=== PATIENT | female | born 1975 | race Caucasian/White ===

== ENCOUNTER → 2016-08-20 | Outpatient (CLI) | payer OTHER ==
[~2016-08-20] MED LIST: CLIN300C2 PO; MULT-506 PO
[2016-08-20 09:33] LABS: BASO % 0.4 %; BASO ABS # 0.02 K/uL (0-0.2); COMPLETE YES; EOS % 4.1 %; HEMATOCRIT 40.1 % (37-47); LYMPH % 41.5 %; LYMPH ABS # 2.25 K/uL (1.2-3.4); MEAN CELL VOLUME 88.3 fL (80-100); MEAN CORPUSCULAR HEMOGLOBIN 29.3 pg (25-34); MEAN CORPUSCULAR HGB CONC 33.2 g/dl (32-36); MEAN PLATELET VOLUME 9.9 fL (7.4-10.4); MONO % 7.7 %; NEUT % 46.3 %; PLATELET COUNT 245 K/uL (130-400); RED BLOOD COUNT 4.54 M/uL (4.2-5.4); WHITE BLOOD COUNT 5.42 K/uL (4.8-10.8)
[2016-08-20 09:54] LABS: ALT/SGPT 23 U/L (12-78); AST/SGOT 12 U/L (15-37); BLOOD UREA NITROGEN 12 mg/dl (7-18); BUN/CREATININE RATIO 15.7 (10-20); CALCIUM 8.7 mg/dl (8.5-10.1); CARBON DIOXIDE 26 mmol/L (21-32); CHLORIDE 110 mmol/L (98-107); CHOLESTEROL 172 mg/dl (0-200); CREATININE 0.79 mg/dl (0.60-1.20); GLUCOSE 92 mg/dl (70-99); POTASSIUM 4.3 mmol/L (3.5-5.1); SODIUM 144 mmol/L (136-145)
[2016-08-20 10:04] LABS: ALKALINE PHOSPHATASE 59 U/L (45-117); CHOLESTEROL/HDL RATIO 3.7; HDL CHOLESTEROL 46 mg/dl; LDL CHOLESTEROL CALCULATED 100 mg/dl; TRIGLYCERIDES 130 mg/dl (0-150); VERY LOW DENSITY LIPOPROT CALC 26 mg/dl
[2016-08-20 10:09] LABS: ESTIMATED AVERAGE GLUCOSE 114 mg/dl; HA1C FLAG Normal (Normal)
== END | disposition home or self-care (01) ==
LOC: C.LAB1850 08:33
PROVIDERS: ATTEND Nurse Practitioner Adult Health
DX: E66.01 Morbid (severe) obesity due to excess calories (principal)

== ENCOUNTER → 2017-01-10 | Outpatient (CLI) | payer OTHER ==
[~2017-01-10] MED LIST changes: +IBUP-1050 PO
[2017-01-12 01:12] LABS: CHLAMYDIA TRACH RNA*** NOT DETECTED (NOT DETECTED); GC (NEIS GONORRHOEAE)RNA** NOT DETECTED (NOT DETECTED)
== END | disposition home or self-care (01) ==
LOC: C.LABSPEC 11:07
PROVIDERS: ATTEND Nurse Practitioner Adult Health
DX: Z20.2 Contact with and (suspected) exposure to infections with a predominantly sexual mode of transmission (principal)

== ENCOUNTER → 2017-01-10 | Outpatient (CLI) | payer OTHER | END | disposition home or self-care (01) | LOC: C.PAPS 13:45 | PROVIDERS: ATTEND Nurse Practitioner Adult Health | DX: Z00.00 Encounter for general adult medical examination without abnormal findings (principal) ==

== ENCOUNTER 2017-02-28 11:06 | Emergency (ER) | payer OTHER ==
[~2017-02-28] VITALS: Ht 170.2 cm; Wt 157.0 kg
[~2017-02-28 11:06] MED LIST changes: -CLIN300C2 PO; -IBUP-1050 PO
[2017-02-28 11:08] VITALS: TEMP 36.6; Ht 170.2 cm; Wt 157.0 kg
[2017-02-28] MEDS ORDERED: KETOROLAC TROMETHAMINE 30 MG/ML VIAL IV STA (11:38)
[2017-02-28] MEDS ORDERED: CLINDAMYCIN 600 MG/54 ML D5W IV ONE (11:45)
--- NOTE | 2017-02-28 11:47 | EMERGENCY ROOM VISIT NOTE ---
History First contact with patient: 11:28 Chief Complaint: DENTAL PAIN Stated Complaint: TOOTHACHE,SWOLLEN LEFT CHEEK Nursing Triage Summary: Pt states "I have an abcessed tooth and they can't get me in". Left upper. Face is swollen. Pain began Tuesday, Swelling started Tuesday, but got worse. History of Present Illness The patient is a 41 year old female who presents to the Emergency Room with complaints of dental pain and facial swelling. The patient states that 2 months ago her left upper tooth broke and she had an infection and saw her dentist. They start her on clindamycin and it seemed to get better. She states that she developed pain 3 days ago and swelling 2 days ago. She states it is getting worse. She states she contacted her dentist but they cannot get her in. She denies any fevers. She denies any discharge. She denies any pain in her chest or trouble breathing. She rates her discomfort a 4/10. Review of Systems A 10 system review of systems was completed with positives and pertinent negatives listed in the HPI. Past Medical/Surgical History Medical Problems: (1) Bronchitis (2) Gall bladder disease (3) Pneumonia Surgical Problems: (1) History of cholecystectomy (2) Previous section Family History FH: HTN (hypertension) FH: cancer FH: gallbladder disease FH: lung disease FH: seizures Heart disease Social History Smoking Status: Current Every Day Smoker Alcohol Use: occasionally Marital Status: Housing Status: lives with significant other Occupation Status: employed Current/Historical Medications Scheduled Clindamycin Hcl (Cleocin), 300 MG PO QID Multivitamin (Multivitamin), 1 TAB PO DAILY Physical Exam Vital Signs Date Time Temp Pulse Resp B/P (MAP) Pulse Ox O2 Delivery O2 Flow Rate FiO2 02/28/17 13:13 72 20 157/102 99 02/28/17 12:34 67 20 146/97 99 Room Air 02/28/17 11:08 36.6 74 17 141/87 99 Room Air Physical Exam VITALS: Vitals are noted on the nurse's note and reviewed by myself. Vital signs stable. The patient is afebrile. GENERAL: This is a 41-year-old female, in no acute distress, nondiaphoretic, well-developed well-nourished. SKIN: The skin was without rashes, erythema or bruising. There is no tenting of the skin. Capillary reflex less than 2 seconds. HEAD: Normocephalic atraumatic. EARS: External auditory canals clear, tympanic membranes pearly jolly without erythema or effusion bilaterally. EYES: Pupils equal round and reactive to light and accommodation. Conjunctivae without injection, sclerae without icterus. Extraocular movements intact. NOSE: Patent, turbinates without inflammation or discharge. No sinus tenderness. MOUTH: Mucous membranes moist. Tonsils are not enlarged. Pharynx without erythema or exudate. Uvula midline. Airway patent. Tongue does not deviate. There is facial swelling noted particularly over the lower jaw on the left. There is tenderness to palpation over the area of swelling. The patient removed her partial upper. The gum is irritated but there is no obvious abscess. There is no swelling beneath the tongue. NECK: Supple without nuchal rigidity. No lymphadenopathy. No thyromegaly. Cervical spine is nontender. No JVD. HEART: Regular rate and rhythm without murmurs gallops or rubs. LUNGS: Clear to auscultation bilaterally without wheezes, rales or rhonchi. No retractions or accessory muscle use. MUSCULOSKELETAL: No muscle atrophy, erythema, or edema noted. Full range of motion in all extremities. Strength 5/5 throughout. NEURO: Patient was alert and oriented to person place and time. No focal neurological deficits. Medical Decision & Procedures Laboratory Results 02/28/17 11:59 Red Blood Count 4.34, Mean Corpuscular Volume 88.7, Mean Corpuscular Hemoglobin 30.0, Mean Corpuscular Hemoglobin Concent 33.8, Mean Platelet Volume 9.3, Neutrophils (%) (Auto) 51.0, Lymphocytes (%) (Auto) 37.3, Monocytes (%) (Auto) 7.5, Eosinophils (%) (Auto) 3.6, Basophils (%) (Auto) 0.4, Neutrophils # (Auto) 2.86, Lymphocytes # (Auto) 2.09, Monocytes # (Auto) 0.42, Eosinophils # (Auto) 0.20, Basophils # (Auto) 0.02 02/28/17 11:59 Test 02/28/17 11:59 White Blood Count 5.60 K/uL (4.8-10.8) Red Blood Count 4.34 M/uL (4.2-5.4) Hemoglobin 13.0 g/dL (12.0-16.0) Hematocrit 38.5 % (37-47) Mean Corpuscular Volume 88.7 fL (80-100) Mean Corpuscular Hemoglobin 30.0 pg (25-34) Mean Corpuscular Hemoglobin Concent 33.8 g/dl (32-36) Platelet Count 248 K/uL (130-400) Mean Platelet Volume 9.3 fL (7.4-10.4) Neutrophils (%) (Auto) 51.0 % Lymphocytes (%) (Auto) 37.3 % Monocytes (%) (Auto) 7.5 % Eosinophils (%) (Auto) 3.6 % Basophils (%) (Auto) 0.4 % Neutrophils # (Auto) 2.86 K/uL (1.4-6.5) Lymphocytes # (Auto) 2.09 K/uL (1.2-3.4) Monocytes # (Auto) 0.42 K/uL (0.11-0.59) Eosinophils # (Auto) 0.20 K/uL (0-0.5) Basophils # (Auto) 0.02 K/uL (0-0.2) RDW Standard Deviation 47.1 fL (36.4-46.3) RDW Coefficient of Variation 14.4 % (11.5-14.5) Immature Granulocyte % (Auto) 0.2 % Immature Granulocyte # (Auto) 0.01 K/uL (0.00-0.02) Anion Gap 5.0 mmol/L (3-11) Est Creatinine Clear Calc Drug Dose 135.8 ml/min Estimated GFR () 98.0 Estimated GFR (Non- 84.5 BUN/Creatinine Ratio 12.8 (10-20) Calcium Level 8.6 mg/dl (8.5-10.1) Total Bilirubin 0.4 mg/dl (0.2-1) Aspartate Amino Transf (AST/SGOT) 10 U/L (15-37) Alanine Aminotransferase (ALT/SGPT) 20 U/L (12-78) Alkaline Phosphatase 70 U/L (45-117) Total Protein 6.9 gm/dl (6.4-8.2) Albumin 3.3 gm/dl (3.4-5.0) Globulin 3.6 gm/dl (2.5-4.0) Albumin/Globulin Ratio 0.9 (0.9-2) Medications Administered Medications (Trade) Dose Ordered Sig/Deandra Route Start Time Stop Time Status Last Admin Dose Admin Clindamycin Phosphate (Cleocin 600mg/ 54ml D5W) 600 mg ONE ONCE IV 02/28/17 11:45 02/28/17 11:46 DC 02/28/17 12:25 600 MG Ketorolac Tromethamine (Toradol Inj) 30 mg NOW STAT IV 02/28/17 11:38 02/28/17 11:39 DC 02/28/17 12:30 30 MG ED Course The patient was seen and examined. Previous visits were reviewed. The patient does not have a fever or leukocytosis. She does have some facial swelling on examination. There is no swelling of the neck are beneath the tongue. I do not suspect abscess or Connor angina at this time. The patient is allergic to penicillin. She was given 600 mg IV clindamycin and 30 mg IV Toradol. She stated she was feeling significantly improved. The patient stated she would contact her dentist for definitive management. She declined any pain medication. She should return with any worsening swelling, swelling beneath the tongue, fevers or generalized worsening symptoms. Medical Decision The differential diagnosis includes dental abscess, facial cellulitis, sialadenitis, viral illness, among others Medication Reconcilliation Current Medication List: was personally reviewed by me Blood Pressure Screening Patient's blood pressure: Elevated blood pressure Blood pressure disposition: Elevated BP felt to be situational Impression Primary Impression: Pain, dental Departure Information Dispostion Home / Self-Care Condition GOOD Prescriptions Clindamycin Hcl (CLEOCIN) 300 Mg Cap 300 MG PO QID for 10 Days, #40 CAP Prov: Giselle Byrd PA-C 02/28/17 Referrals Eda Mcconnell C.R.N.P. (PCP) Patient Instructions My [facility] Additional Instructions Clindamycin as prescribed, until finished Motrin 600 mg every 6-8 hours or moderate pain Contact your dentist to schedule a follow-up appointment for further evaluation and management Return to the emergency Department with any fevers, worsening swelling, worsening pain
[2017-02-28 12:25] LABS: BASO % 0.4 %; BASO ABS # 0.02 K/uL (0-0.2); COMPLETE YES; EOS % 3.6 %; HEMATOCRIT 38.5 % (37-47); IG% 0.2 %; LYMPH % 37.3 %; LYMPH ABS # 2.09 K/uL (1.2-3.4); MEAN CELL VOLUME 88.7 fL (80-100); MEAN CORPUSCULAR HGB CONC 33.8 g/dl (32-36); MEAN PLATELET VOLUME 9.3 fL (7.4-10.4); MONO % 7.5 %; PLATELET COUNT 248 K/uL (130-400); RED BLOOD COUNT 4.34 M/uL (4.2-5.4)
[2017-02-28 12:51] LABS: BUN/CREATININE RATIO 12.8 (10-20); CALCIUM 8.6 mg/dl (8.5-10.1); CREATININE 0.85 mg/dl (0.60-1.20); POTASSIUM 3.9 mmol/L (3.5-5.1)
[2017-02-28 12:54] LABS: ALB/GLOB RATIO 0.9 (0.9-2)
[2017-02-28] MEDS ORDERED: CLIN300C2 PO (12:59)
[2017-02-28 13:13] VITALS: BP 157/102; PULSE 72; O2SAT 99
== END 2017-02-28 13:16 | disposition home or self-care (01) ==
LOC: C.EDB 11:07 → C.EDC 13:16
DX: K08.89 Other specified disorders of teeth and supporting structures (principal); F17.200 Nicotine dependence, unspecified, uncomplicated; Z87.01 Personal history of pneumonia (recurrent); Z90.49 Acquired absence of other specified parts of digestive tract; Z98.891 History of uterine scar from previous surgery; Z82.49 Family history of ischemic heart disease and other diseases of the circulatory system; Z82.0 Family history of epilepsy and other diseases of the nervous system

== ENCOUNTER → 2017-04-25 | Outpatient (CLI) | payer OTHER ==
[2017-04-25 12:48] LABS: URINE APPEARANCE CLEAR (CLEAR); URINE BILIRUBIN NEG (NEG); URINE COLOR YELLOW; URINE NITRITE NEG (NEG); URINE PH 6.5 (4.5-7.5); URINE SPECIFIC GRAVITY 1.022 (1.000-1.030); UROBILINOGEN NEG (NEG)
[2017-04-25 12:55] LABS: MANUAL MICROSCOPIC REQUIRED? NO; REVIEW REQ? NO
[2017-04-25 12:59] LABS: HEPATITIS B AB NEG
[2017-04-25 13:01] LABS: BENZODIAZEPINE, URINE NEG (NEG); COCAINE,URINE NEG (NEG); PHENCYCLIDINE, URINE NEG (NEG)
== END | disposition home or self-care (01) ==
LOC: C.LABPBG 09:07
PROVIDERS: ATTEND Nurse Practitioner Adult Health
DX: Z02.1 Encounter for pre-employment examination (principal)

== ENCOUNTER 2017-06-03 07:17 | Emergency (ER) | payer OTHER ==
[~2017-06-03] VITALS: Ht 170.2 cm; Wt 155.3 kg
[2017-06-03 07:23] VITALS: TEMP 36.8; Ht 170.2 cm; Wt 155.3 kg
[2017-06-03] MEDS ORDERED: IBUP-1050 PO (07:42)
--- NOTE | 2017-06-03 08:26 | EMERGENCY ROOM VISIT NOTE ---
History Report prepared by Rachelle: Rose Galvez Under the Supervision of: Dr. Jatinder Dela Cruz M.D. First contact with patient: 07:36 Chief Complaint: FACIAL PAIN/INJURY Stated Complaint: L SIDE FACE SWALLON History of Present Illness The patient is a 42 year old female who presents to the Emergency Room with complaints of worsening left-sided facial pain since yesterday. The patient reports pain and swelling to the left side of her face. She states that for the past 4 days she has been having some sinus congestion and she thinks that her pain and swelling are due to this sinus congestion. She has pain and pressure on the left side of her face and up into her forehead and around her eye. She is beginning to have pain in her left ear. The patient rates her pain as a 4/10 in severity. She states that this has happened before multiple times in the past. She typically has to come to the hospital for IV antibiotics when it occurs. The patient denies any dental pain but reports a cracked molar on the left upper side of her mouth. Source of History: patient Onset: yesterday Position: head Symptom Intensity: 4/10 Quality: pressure Timing: worsening Note: Pt notes sinus congestion and left ear pain. Pt denies dental pain. Review of Systems All systems have been listed, reviewed, and are negative other than those previously mentioned. Please see Additional Medical History Sheet. Past Medical & Surgical Medical Problems: (1) Acute bronchitis (2) Acute bronchitis (3) Bronchitis (4) Cellulitis of right thigh (5) Gall bladder disease (6) Obesity (7) Pneumonia (8) Strain of thoracic spine Surgical Problems: (1) History of cholecystectomy (2) Previous section Family History FH: HTN (hypertension) FH: cancer FH: gallbladder disease FH: lung disease FH: seizures Heart disease Social History Smoking Status: Current Every Day Smoker Alcohol Use: occasionally Marital Status: Housing Status: lives with significant other Occupation Status: employed Current/Historical Medications Scheduled Clindamycin Hcl (Cleocin), 300 MG PO QID Ibuprofen (Advil), 400-600 MG PO DIRECTED Multivitamin (Multivitamin), 1 TAB PO DAILY Allergies Coded Allergies: Cephalexin (Verified Allergy, Intermediate, hives, 06/03/17) Penicillins (Verified Allergy, Intermediate, HIVES, SWELLING, 06/03/17) Physical Exam Vital Signs Date Time Temp Pulse Resp B/P (MAP) Pulse Ox O2 Delivery O2 Flow Rate FiO2 06/03/17 10:47 78 20 133/88 98 06/03/17 08:53 75 20 138/79 99 Room Air 06/03/17 07:23 36.8 83 18 151/91 96 Room Air Physical Exam GENERAL: Patient awake, alert, oriented x 3. Patient appears to be in moderate distress. Patient follows commands. Patient does not appear toxic. Patient is adequately hydrated and well-nourished. SKIN: No erythema, pallor, cyanosis or rash HEENT: Normal head, pupils equal, reactive to light and accommodation. Ears normal. Marked swelling over the left maxillary sinus, some tenderness in oral cavity and buccal mucosa near the left upper 2nd molar. No signs of abscess within the mouth. Neck: No significant cervical adenopathy, no neck vein distention. LUNGS: Clear to auscultation. No wheezes, no rales, no rhonchi. HEART: No murmurs. No gallops. No rubs ABDOMEN: Obese, soft, nontender. EXTREMITIES: No signs of trauma or infection NEUROLOGIC: Cranial nerves II-XII within normal limits. No gross motor sensory function deficits. Medical Decision & Procedures ER Provider Diagnostic Interpretation: Radiology results as stated below per my review and radiologist interpretation: SINUS CT CT DOSE: 610.91 mGy.cm HISTORY: left facial swelling TECHNIQUE: Multiaxial CT images of the paranasal sinuses were performed and reformatted in the coronal plane without the use of contrast. A dose lowering technique was utilized adhering to the principles of ALARA. COMPARISON: None. FINDINGS: The frontal sinuses, ethmoid air cells, sphenoid sinuses, and right maxillary sinus are clear. Mild mucosal thickening within the floor the left maxillary sinus. No fluid levels within the paranasal sinuses. The mastoid air cells are clear. The bilateral ostiomeatal units are patent. The nasal septum is midline. The orbits are unremarkable. The visualized brain parenchyma is within normal limits. Subcutaneous fat stranding within the left face/mandible. There is soft tissue thickening along the buccal surface of the left maxilla. This is likely secondary to a 5 mm periapical lucency at ADA 13 which demonstrates cortical breakthrough at the buccal surface. This is best seen on axial image 107. IMPRESSION: 1. Mild mucosal thickening within the floor of the left max a sinus. No fluid levels within the paranasal sinuses. 2. Subcutaneous fat stranding within the left face/mandible. There is soft tissue thickening along the buccal surface of the left maxilla. This is likely secondary to a 5 mm periapical lucency at ADA 13 which demonstrates cortical breakthrough at the buccal surface. Electronically signed by: Augustin Tolentino M.D. 06/03/2017 8:34 AM Dictated Date/Time: 06/03/2017 8:26 AM Laboratory Results 06/03/17 08:05 Red Blood Count 4.66, Mean Corpuscular Volume 89.9, Mean Corpuscular Hemoglobin 29.8, Mean Corpuscular Hemoglobin Concent 33.2, Mean Platelet Volume 10.1, Neutrophils (%) (Auto) 63.9, Lymphocytes (%) (Auto) 24.8, Monocytes (%) (Auto) 7.3, Eosinophils (%) (Auto) 3.5, Basophils (%) (Auto) 0.4, Neutrophils # (Auto) 5.31, Lymphocytes # (Auto) 2.06, Monocytes # (Auto) 0.61, Eosinophils # (Auto) 0.29, Basophils # (Auto) 0.03 06/03/17 08:05 Test 06/03/17 08:05 White Blood Count 8.31 K/uL (4.8-10.8) Red Blood Count 4.66 M/uL (4.2-5.4) Hemoglobin 13.9 g/dL (12.0-16.0) Hematocrit 41.9 % (37-47) Mean Corpuscular Volume 89.9 fL (80-100) Mean Corpuscular Hemoglobin 29.8 pg (25-34) Mean Corpuscular Hemoglobin Concent 33.2 g/dl (32-36) Platelet Count 270 K/uL (130-400) Mean Platelet Volume 10.1 fL (7.4-10.4) Neutrophils (%) (Auto) 63.9 % Lymphocytes (%) (Auto) 24.8 % Monocytes (%) (Auto) 7.3 % Eosinophils (%) (Auto) 3.5 % Basophils (%) (Auto) 0.4 % Neutrophils # (Auto) 5.31 K/uL (1.4-6.5) Lymphocytes # (Auto) 2.06 K/uL (1.2-3.4) Monocytes # (Auto) 0.61 K/uL (0.11-0.59) Eosinophils # (Auto) 0.29 K/uL (0-0.5) Basophils # (Auto) 0.03 K/uL (0-0.2) RDW Standard Deviation 48.0 fL (36.4-46.3) RDW Coefficient of Variation 14.7 % (11.5-14.5) Immature Granulocyte % (Auto) 0.1 % Immature Granulocyte # (Auto) 0.01 K/uL (0.00-0.02) Anion Gap 7.0 mmol/L (3-11) Est Creatinine Clear Calc Drug Dose 143.6 ml/min Estimated GFR () 106.3 Estimated GFR (Non- 91.7 BUN/Creatinine Ratio 12.1 (10-20) Lactic Acid Level 1.2 mmol/L (0.4-2.0) Calcium Level 8.7 mg/dl (8.5-10.1) Laboratory results as stated above per my review. Medications Administered Medications (Trade) Dose Ordered Sig/Deandra Route Start Time Stop Time Status Last Admin Dose Admin Clindamycin Phosphate 600 mg/ Dextrose 54 ml @ 108 mls/hr 0845 IV 06/03/17 08:45 06/03/17 09:14 DC 06/03/17 08:53 108 MLS/HR ED Course 0736: Past medical records reviewed. The patient was evaluated in room B10. A complete history and physical examination was performed. 0845: Clindamycin Phosphate 600 mg/Dextrose 54 ml @ 108 mls/hr IV 0955: I reassessed the patient at this time. She is feeling better and resting comfortably. I discussed the results and treatment plan with the patient. I answered all pertaining questions that she had. She expressed understanding and verbalized agreement. The patient will be discharged home. Medical Decision Nurses notes reviewed. Medical history sheet reviewed. Differential diagnosis includes but is not limited to: acute sinusitis, dental abscess, sepsis. Imaging studies and lab work were performed. Please see above. The patient has a dental abscess resulting in significant swelling. White count is not elevated nor is lactic acid. The patient was given IV clindamycin here and will continue that medication is oral medication at home. The patient was urged to see her dentist as soon as possible. Most likely she will require an extraction. The patient was offered pain medication but declined. Medication Reconcilliation Current Medication List: was personally reviewed by me Blood Pressure Screening Patient's blood pressure: Elevated blood pressure Blood pressure disposition: Elevated BP felt to be situational Impression Primary Impression: Dental abscess Scribe Attestation The scribe's documentation has been prepared under my direction and personally reviewed by me in its entirety. I confirm that the note above accurately reflects all work, treatment, procedures, and medical decision making performed by me. Departure Information Dispostion Home / Self-Care Prescriptions Clindamycin Hcl (CLEOCIN) 300 Mg Cap 300 MG PO QID for 10 Days, #40 CAP Prov: Jatinder Dela Cruz M.D. 06/03/17 Referrals Eda Mcconnell C.R.N.P. (PCP) Forms HOME CARE DOCUMENTATION FORM, IMPORTANT VISIT INFORMATION Patient Instructions My [facility] Additional Instructions 1 Cleocin 4 times a day for the next 10 days. Follow-up with your dentist as soon as possible. You may take acetaminophen or ibuprofen as needed for pain. Return here if you develop fever or your swelling is getting worse.
[2017-06-03 08:27] LABS: BASO % 0.4 %; BASO ABS # 0.03 K/uL (0-0.2); COMPLETE YES; EOS % 3.5 %; HEMATOCRIT 41.9 % (37-47); IG% 0.1 %; LYMPH % 24.8 %; LYMPH ABS # 2.06 K/uL (1.2-3.4); MEAN CELL VOLUME 89.9 fL (80-100); MEAN CORPUSCULAR HEMOGLOBIN 29.8 pg (25-34); MEAN CORPUSCULAR HGB CONC 33.2 g/dl (32-36); MEAN PLATELET VOLUME 10.1 fL (7.4-10.4); MONO % 7.3 %; NEUT % 63.9 %; PLATELET COUNT 270 K/uL (130-400); RED BLOOD COUNT 4.66 M/uL (4.2-5.4); WHITE BLOOD COUNT 8.31 K/uL (4.8-10.8)
--- NOTE | 2017-06-03 08:36 | DIAGNOSTIC IMAGING REPORT ---
SINUS CT CT DOSE: 610.91 mGy.cm HISTORY: left facial swelling TECHNIQUE: Multiaxial CT images of the paranasal sinuses were performed and reformatted in the coronal plane without the use of contrast. A dose lowering technique was utilized adhering to the principles of ALARA. COMPARISON: None. FINDINGS: The frontal sinuses, ethmoid air cells, sphenoid sinuses, and right maxillary sinus are clear. Mild mucosal thickening within the floor the left maxillary sinus. No fluid levels within the paranasal sinuses. The mastoid air cells are clear. The bilateral ostiomeatal units are patent. The nasal septum is midline. The orbits are unremarkable. The visualized brain parenchyma is within normal limits. Subcutaneous fat stranding within the left face/mandible. There is soft tissue thickening along the buccal surface of the left maxilla. This is likely secondary to a 5 mm periapical lucency at ADA 13 which demonstrates cortical breakthrough at the buccal surface. This is best seen on axial image 107. IMPRESSION: 1. Mild mucosal thickening within the floor of the left max a sinus. No fluid levels within the paranasal sinuses. 2. Subcutaneous fat stranding within the left face/mandible. There is soft tissue thickening along the buccal surface of the left maxilla. This is likely secondary to a 5 mm periapical lucency at ADA 13 which demonstrates cortical breakthrough at the buccal surface. Electronically signed by: Augustin Tolentino M.D. 06/03/2017 8:34 AM Dictated Date/Time: 06/03/2017 8:26 AM
[2017-06-03] MEDS ORDERED: CLINDAMYCIN IV 600 MG in DEXTROSE 5% 50ML 50 ML IV SCH (08:45)
[2017-06-03] MEDS ORDERED: CLINDAMYCIN 600 MG/54 ML D5W IV ONE (08:45)
[2017-06-03 08:50] LABS: BUN/CREATININE RATIO 12.1 (10-20); CALCIUM 8.7 mg/dl (8.5-10.1); CREATININE 0.79 mg/dl (0.60-1.20)
[2017-06-03] MEDS ORDERED: CLIN300C2 PO (10:20)
[2017-06-03 10:47] VITALS: BP 133/88; PULSE 78; O2SAT 98
== END 2017-06-03 10:48 | disposition home or self-care (01) ==
LOC: C.EDB 07:19
DX: K04.7 Periapical abscess without sinus (principal); K82.9 Disease of gallbladder, unspecified; F17.200 Nicotine dependence, unspecified, uncomplicated; Z86.19 Personal history of other infectious and parasitic diseases; Z87.828 Personal history of other (healed) physical injury and trauma; Z90.49 Acquired absence of other specified parts of digestive tract; Z88.0 Allergy status to penicillin; Z88.8 Allergy status to other drugs, medicaments and biological substances; Z82.49 Family history of ischemic heart disease and other diseases of the circulatory system; Z80.9 Family history of malignant neoplasm, unspecified; Z83.79 Family history of other diseases of the digestive system; Z82.0 Family history of epilepsy and other diseases of the nervous system